=== PATIENT | male | born 1940 | race Caucasian/White ===

== ENCOUNTER 2020-10-18 15:21 | Emergency (ER) | payer OTHER ==
[~2020-10-18] VITALS: Ht 175.3 cm; Wt 76.2 kg
[2020-10-18] MEDS ORDERED: CLONIDINE HCL0.1 MG PO (15:38)
[2020-10-18] MEDS ORDERED: PLAVIX 75 MG TA75 MG PO (15:38)
[2020-10-18] MEDS ORDERED: LIPITOR10 MG PO (15:38)
[2020-10-18] MEDS ORDERED: NORVASC5 M1 PO (15:38)
[2020-10-18] MEDS ORDERED: BENAZEPRIL HCL20 MG PO (15:38)
[2020-10-18] MEDS ORDERED: FLONASE 0.05%50 MCG NARES (15:39)
[2020-10-18] MEDS ORDERED: FINASTERIDE5 MG PO (15:39)
[2020-10-18 16:11] LABS: ABSOLUTE EOSINOPHILS 0.1 thou/uL (0.0-0.7); ABSOLUTE LYMPHOCYTES 0.8 thou/uL (0.8-5.3); ABSOLUTE MONOCYTES 0.8 thou/uL (0.0-1.2); ABSOLUTE NEUTROPHILS 4.5 thou/uL (1.6-8.1); BASOPHILS 0.3 %; EOSINOPHILS 1.8 %; HEMATOCRIT 37.9 % (42.0-52.0); HEMOGLOBIN 12.8 gm/dL (14.0-18.0); LYMPHOCYTES 13.2 %; MCH 30.5 pg (26.0-34.0); MCHC 33.8 g/dL (28.0-37.0); MCV 90.1 fL (80.0-100.0); MONOCYTES 12.9 %; MPV 6.9 fl. (7.2-11.1); NUCLEATED RBCS 0 /100WBC; PLATELET COUNT* 171 thou/uL (150-400); POLYS 71.8 %; RBC 4.21 mil/uL (4.50-6.00); RDW-CV 13.6 % (10.5-14.5); WBC 6.2 thou/uL (4.0-11.0)
[2020-10-18 16:19] LABS: CALCIUM 9.3 mg/dL (8.5-10.1); CREATININE 0.8 mg/dL (0.6-1.3)
[2020-10-18 16:30] LABS: ALBUMIN 3.7 g/dL (3.4-5.0); TOTAL BILIRUBIN 0.5 mg/dL (<0.1-1.0); TOTAL PROTEIN 7.3 g/dL (6.4-8.2)
[2020-10-18] MEDS ORDERED: KEFLEX500 M1 PO (17:51)
[2020-10-18] MEDS ORDERED: BACTRIM DS TAB1 EACH PO (17:51)
[2020-10-18 18:22] VITALS: BP 142/72
--- NOTE | 2020-10-19 12:54 | EKG ---
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
== END 2020-10-18 18:22 | disposition home or self-care (01) ==
LOC: M.ERS 15:21
PROVIDERS: Nurse Practitioner Family
DX: L03.116 Cellulitis of left lower limb (principal); R60.0 Localized edema; I10 Essential (primary) hypertension; E78.00 Pure hypercholesterolemia, unspecified; N40.0 Benign prostatic hyperplasia without lower urinary tract symptoms; Z85.46 Personal history of malignant neoplasm of prostate; Z88.5 Allergy status to narcotic agent